=== PATIENT | male | born 1950 | race African-American/Black ===

== ENCOUNTER 2017-09-18 08:20 | Emergency (ER) | payer BC, MEDICARE ==
[~2017-09-18] VITALS: Ht 180.3 cm; Wt 102.0 kg
[2017-09-18] VITALS (7 sets, daily range): BP systolic 107–134; BP diastolic 69–89; PULSE 72–77; RESP 16–24; TEMP 97.8–98; O2SAT 97–99
[~2017-09-18 08:20] MED LIST: EXFORGE PO; FENO50TA PO; ROSU20 PO; ZOFR4TAB3 SL
[2017-09-18] MEDS ORDERED: LISI10TA3 PO (08:37)
[2017-09-18] MEDS ORDERED: ASPI-516 PO (08:37)
[2017-09-18] MEDS ORDERED: ROSU20 PO (08:37)
--- NOTE | 2017-09-18 08:57 | PD ---
HPI Chief Complaint: Dizziness Time Seen by Provider: 08:52 Travel History International Travel<30 days: No Contact w/Intl Traveler<30days: No Traveled to known affect area: No History of Present Illness HPI 66-year-old male presents today with limited dizziness and nausea. The patient' s had previous vertigo in the past. He states this feels exactly like it did before. He stated last time he had it, he was also noted to be dehydrated as well as having vertigo. He reports positional dizziness. Worse when getting up and standing. He does report that he probably has not been drinking enough fluids. There are no chest pain or chest pressure. No palpitations. There is no headache. There are no other complaints time my examination. PFSH Past Medical History Hx Anticoagulant Therapy: Yes (ASA) Cardiovascular Problems: Yes (HBP) High Cholesterol: Yes Diminished Hearing: No Hypertension: Yes Respiratory: Yes (SLEEP APNEA. 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 SIDE & RLE) Social History Alcohol Use: Yes (OCCASIONAL) Tobacco Use: No Substance Use: No Allergies-Medications (Allergen,Severity, Reaction): Coded Allergies: penicillin G (Verified Allergy, Severe, HIVES, 09/18/17) Reported Meds & Prescriptions Reported Meds & Active Scripts Active Reported Aspirin 81 Mg Chew 81 Mg PO DAILY Lisinopril 10 Mg Tab 10 Mg PO DAILY Crestor (Rosuvastatin Calcium) 20 Mg Tab 20 Mg PO DAILY Review of Systems Except as stated in HPI: all other systems reviewed are Neg General / Constitutional: No: Fever, Chills HENT: No: Headaches, Neck Pain Cardiovascular: No: Chest Pain or Discomfort, Palpitations, Tachycardia Respiratory: No: Cough, Shortness of Breath Gastrointestinal: No: Nausea, Vomiting, Abdominal Pain Genitourinary: No: Urgency, Frequency, Nocturia Musculoskeletal: No: Weakness, Pain Neurologic: Positive: Dizziness, No: Weakness, Syncope, Headache Physical Exam Narrative GENERAL: Well-developed well-nourished male in no acute respiratory distress SKIN: Focused skin assessment warm/dry. HEAD: Atraumatic. Normocephalic. EYES: Pupils equal and round. No scleral icterus. No injection or drainage. ENT: No nasal bleeding or discharge. Mucous membranes pink and moist. NECK: Trachea midline. Supple. CARDIOVASCULAR: Regular rate and rhythm. No murmur appreciated. RESPIRATORY: No accessory muscle use. Clear to auscultation. Breath sounds equal bilaterally. GASTROINTESTINAL: Abdomen soft, non-tender, nondistended. Hepatic and splenic margins not palpable. MUSCULOSKELETAL: No obvious deformities. No clubbing. No cyanosis. No edema. NEUROLOGICAL: Awake and alert. No obvious cranial nerve deficits. Motor grossly within normal limits. Normal speech. Patient had dizziness when going from lying to sitting up and standing. PSYCHIATRIC: Appropriate mood and affect; insight and judgment normal. Data Data Last Documented VS Vital Signs Date Time Temp Pulse Resp B/P (MAP) Pulse Ox O2 Delivery O2 Flow Rate FiO2 09/18/17 13:55 97.8 76 17 133/78 (96) 98 Room Air Orders Orders Electrocardiogram (09/18/17 ) Complete Blood Count With Diff (09/18/17 08:52) Comprehensive Metabolic Panel (09/18/17 08:52) Ckmb (Isoenzyme) Profile (09/18/17 08:52) Troponin I (09/18/17 08:52) Iv Access Insert/Monitor (09/18/17 08:52) Ecg Monitoring (09/18/17 08:52) Oximetry (09/18/17 08:52) Sodium Chlor 0.9% 1000 Ml Inj (Ns 1000 M (09/18/17 09:00) Meclizine (Antivert) (09/18/17 09:00) CKMB (09/18/17 08:55) CKMB% (09/18/17 08:55) Sodium Chlor 0.9% 1000 Ml Inj (Ns 1000 M (09/18/17 12:00) Labs Laboratory Tests Test 09/18/17 08:55 White Blood Count 7.1 TH/MM3 Red Blood Count 4.68 MIL/MM3 Hemoglobin 14.1 GM/DL Hematocrit 42.4 % Mean Corpuscular Volume 90.4 FL Mean Corpuscular Hemoglobin 30.1 PG Mean Corpuscular Hemoglobin Concent 33.3 % Red Cell Distribution Width 13.7 % Platelet Count 226 TH/MM3 Mean Platelet Volume 9.6 FL Neutrophils (%) (Auto) 65.6 % Lymphocytes (%) (Auto) 26.5 % Monocytes (%) (Auto) 5.1 % Eosinophils (%) (Auto) 2.2 % Basophils (%) (Auto) 0.6 % Neutrophils # (Auto) 4.6 TH/MM3 Lymphocytes # (Auto) 1.9 TH/MM3 Monocytes # (Auto) 0.4 TH/MM3 Eosinophils # (Auto) 0.2 TH/MM3 Basophils # (Auto) 0.0 TH/MM3 CBC Comment DIFF FINAL Differential Comment Blood Urea Nitrogen 13 MG/DL Creatinine 0.94 MG/DL Random Glucose 138 MG/DL Total Protein 7.8 GM/DL Albumin 3.6 GM/DL Calcium Level 8.7 MG/DL Alkaline Phosphatase 84 U/L Aspartate Amino Transf (AST/SGOT) 30 U/L Alanine Aminotransferase (ALT/SGPT) 25 U/L Total Bilirubin 0.4 MG/DL Sodium Level 138 MEQ/L Potassium Level 4.2 MEQ/L Chloride Level 105 MEQ/L Carbon Dioxide Level 26.6 MEQ/L Anion Gap 6 MEQ/L Estimat Glomerular Filtration Rate 97 ML/MIN Total Creatine Kinase 136 U/L Creatine Kinase MB 0.7 NG/ML Troponin I LESS THAN 0.02 NG/ML MDM Medical Decision Making Medical Screen Exam Complete: Yes Emergency Medical Condition: Yes Differential Diagnosis Dehydration versus metabolic derangement versus vertigo Narrative Course 66-year-old male presents today with complaints of dizziness. Patient reports postural dizziness when he stands. He denies any headache. He does report that he's had vertigo in the past. He states last time he had this he was told he was dehydrated and had vertigo. The patient's been given 1 L of IVD fluid followed by 25 mg of meclizine. After the 1 L fluid, he states he felt better however was still feeling slightly dizzy. He was given another liter of fluid. After that was in, he states he felt much improved and did not have dizziness anymore. I've informed him he needs to drink more fluid. He is also instructed to take the meclizine as needed. He is instructed to follow up with his primary care physician. He is also instructed to return here if he develops any worsening symptoms. Diagnosis Primary Impression: Benign positional vertigo Additional Impression: Dehydration Med/Other Pt SpecificInfo: Prescription(s) given Scripts Meclizine (Meclizine) 25 Mg Tab 25 MG PO TID Y for VERTIGO, #20 TAB 0 Refills Prov: Abreu,Peter C. MD 09/18/17 Disposition: 01 DISCHARGE HOME Condition: Stable Ravi Abreu MD Sep 18, 2017 08:57
[2017-09-18] MEDS ORDERED: SODIUM CHLOR 0.9% 1000 ML INJ 1,000 ML IV ONE ×2 (09:00→12:00)
[2017-09-18] MEDS ORDERED: MECLIZINE HCL 25 MG TAB PO ONE (09:00)
[2017-09-18 09:22] LABS: AUTOMATED NEUTROPHIL # 4.6 TH/MM3 (1.8-7.7); BASOPHIL % 0.6 % (0.0-2.0); EOSINOPHIL # 0.2 TH/MM3 (0-0.4); EOSINOPHIL % 2.2 % (0.0-4.0); HEMATOCRIT 42.4 % (39.0-51.0); HEMO FLAGS DIFF FINAL; LYMPH % 26.5 % (9.0-44.0); LYMPHOCYTE # 1.9 TH/MM3 (1.0-4.8); MEAN CELL VOLUME 90.4 FL (80.0-100.0); MEAN CORPUSCULAR HEMOGLOBIN 30.1 PG (27.0-34.0); MEAN CORPUSCULAR HGB CONC 33.3 % (32.0-36.0); MONO % 5.1 % (0.0-8.0); NEUT % 65.6 % (16.0-70.0); PLATELET COUNT 226 TH/MM3 (150-450); RED BLOOD COUNT 4.68 MIL/MM3 (4.50-5.90); RED CELL DISTRIBUTION WIDTH 13.7 % (11.6-17.2); WHITE BLOOD COUNT 7.1 TH/MM3 (4.0-11.0)
[2017-09-18 09:49] LABS: ALKALINE PHOSPHATASE 84 U/L (45-117); CREATINE KINASE 136 U/L (39-308); TOTAL BILIRUBIN ADULT 0.4 MG/DL (0.2-1.0)
[2017-09-18 10:01] LABS: ALT (GPT) 25 U/L (12-78); ANION GAP 6 MEQ/L (5-15); AST (GOT) 30 U/L (15-37); BICARBONATE 26.6 MEQ/L (21.0-32.0); BLOOD UREA NITROGEN 13 MG/DL (7-18); CHLORIDE 105 MEQ/L (98-107); GLOMERULAR FILTRATION RATE 97 ML/MIN (>89); POTASSIUM 4.2 MEQ/L (3.5-5.1); SODIUM (NA) 138 MEQ/L (136-145)
[2017-09-18 10:03] LABS: CKMB 0.7 NG/ML (0.5-3.6)
--- NOTE | 2017-09-18 11:46 | EKG ---
Date Performed: 09/18/2017 Time Performed: 08:56:11 PTAGE: 66 years EKG: Sinus rhythm WITH OCCASIONAL SUPRAVENTRICULAR PREMATURE COMPLEXES NONSPECIFIC T-WAVE ABNORMALITY BORDERLINE ECG PREVIOUS TRACING : 02/24/2012 17.13 Compared to previous tracing, PACs are now present. DOCTOR: Amado Skinner Interpretating Date/Time 09/18/2017 11:45:44
[2017-09-18] MEDS ORDERED: MECL-62 PO (15:28)
== END 2017-09-18 15:45 | disposition home or self-care (01) ==
LOC: NEPE 08:20
DX: H81.10 Benign paroxysmal vertigo, unspecified ear (principal); E86.0 Dehydration; I10 Essential (primary) hypertension; E78.00 Pure hypercholesterolemia, unspecified; R94.31 Abnormal electrocardiogram [ECG] [EKG]
CPT/HCPCS: 80053; 82550; 82552; 84484; 85025; 93005; 96360; 96361; 99284; J7030